=== PATIENT | male | born 1975 | race Caucasian/White ===

== ENCOUNTER 2017-03-22 10:11 | Emergency (ER) | payer OTHER ==
[~2017-03-22] VITALS: Ht 170.2 cm; Wt 95.3 kg
[2017-03-22 10:40] LABS: ABSOLUTE NEUTROPHILS 9.3 thou/uL (1.4-8.2); BASOPHILS 0.5 % (0.0-2.0); EOSINOPHILS 1.5 % (0.0-3.0); HEMATOCRIT 37.1 % (42.0-52.0); HEMOGLOBIN 12.9 gm/dL (14.0-18.0); LYMPHOCYTES 19.2 % (24.0-44.0); MANUAL DIFF NO; MCH 30.5 pg (26.0-34.0); MCHC 34.9 g/dL (28.0-37.0); MCV 87.4 fL (80.0-100.0); MONOCYTES 5.7 % (1.0-8.0); PLATELET COUNT 240 thou/uL (150-400); POLYS 73.1 % (36.0-66.0); RBC 4.25 mil/uL (4.50-6.00); RDW 12.7 % (10.5-14.5); WBC 12.7 thou/uL (4.0-11.0)
[2017-03-22 10:43] LABS: CALCIUM 8.6 mg/dL (8.5-10.1); CREATININE 0.8 mg/dL (0.7-1.3); POTASSIUM 4.3 mmol/L (3.5-5.1)
[2017-03-22] MEDS ORDERED: ASPIR-TRIN325 MG PO (10:45)
[2017-03-22] MEDS ORDERED: ZANTAC 150MG T150 MG PO (10:45)
[2017-03-22 11:01] LABS: APTT 22.8 Seconds (24.5-32.8); PROTIME 9.9 Seconds (9.3-11.4)
[2017-03-22 13:43] VITALS: BP 104/64
== END 2017-03-22 13:44 | disposition home or self-care (01) ==
LOC: ER 10:11
PROVIDERS: Emergency Medicine
DX: K92.2 Gastrointestinal hemorrhage, unspecified (principal); R53.1 Weakness; I95.1 Orthostatic hypotension; Z88.0 Allergy status to penicillin

== ENCOUNTER 2021-08-19 02:20 | Emergency (ER) | payer OTHER ==
[~2021-08-19] VITALS: Ht 177.8 cm; Wt 108.9 kg
[~2021-08-19 02:20] MED LIST: ASPIR-TRIN325 MG PO; ZANTAC 150MG T150 MG PO
[2021-08-19 02:58] LABS: ABSOLUTE NEUTROPHILS 18.1 thou/uL (1.4-8.2); MCV 89.1 fL (80.0-100.0)
[2021-08-19 03:00] LABS: BASOPHILS 0.6 % (0.0-2.0); HEMATOCRIT 45.7 % (42.0-52.0); HEMOGLOBIN 15.9 gm/dL (14.0-18.0); LYMPHOCYTES 5.1 % (24.0-44.0); MCH 31.1 pg (26.0-34.0); MCHC 34.9 g/dL (28.0-37.0); MONOCYTES 3.8 % (1.0-8.0); PLATELET COUNT 230 thou/uL (150-400); POLYS 90.5 % (36.0-66.0); RBC 5.13 mil/uL (4.50-6.00); RDW 12.3 % (10.5-14.5)
[2021-08-19 03:13] LABS: CALCIUM 9.1 mg/dL (8.5-10.1); POTASSIUM 3.7 mmol/L (3.5-5.1)
[2021-08-19 03:21] LABS: ALBUMIN 4.1 g/dL (3.4-5.0); TOTAL BILIRUBIN 1.5 mg/dL (0.2-1.0); TOTAL PROTEIN 8.6 g/dL (6.4-8.2)
[2021-08-19] MEDS ORDERED: NAPROSYN500 MG PO (06:59)
[2021-08-19] MEDS ORDERED: FLAGYL500 M1 PO (06:59)
[2021-08-19] MEDS ORDERED: LEVOFLOXACIN500 MG PO (06:59)
[2021-08-19 07:18] VITALS: BP 146/90
--- NOTE | 2021-08-19 15:33 | EKG ---
[address] [address] ELECTROCARDIOGRAM REPORT Name: SHELBIEALISA ODELLAR [facility] [id number] Admission: 08/19/21 Attend Phys: Discharge: 08/19/21 Date of : 71 Report #: [id number] [facility] ED Test Date: 2021-08-19 Test Time: 02:42:09 Pat Name: SEVERINO SNOW Department: Room: Gender: Career Development Associate: edilberto : 1975 Requested By: Roe Christie Order Number: [id number] MD: Ghanshyam Hayes Measurements Intervals [place] Rate: 78 P: 8 [place]: 143 QRS: 48 QRSD: 104 T: 4 QT: 398 QTc: 454 Interpretive Statements Sinus rhythm Left ventricular hypertrophy No previous ECG available for comparison Electronically Signed On 08-19-2021 15:32:54 CDT by Ghanshyam Hayes [email or web address] <ELECTRONICALLY SIGNED> By: Ghanshyam Hayes MD, [facility] 08/19/21 1532 [id number] Ghanshyam Hayes MD, FACC /EPI
== END 2021-08-19 07:19 | disposition home or self-care (01) ==
LOC: ER 02:20
PROVIDERS: Emergency Medicine
DX: K81.9 Cholecystitis, unspecified (principal); Z20.822 Contact with and (suspected) exposure to COVID-19; R10.13 Epigastric pain; Z90.49 Acquired absence of other specified parts of digestive tract; Z79.82 Long term (current) use of aspirin; Z79.899 Other long term (current) drug therapy; Z88.0 Allergy status to penicillin